=== PATIENT | female | born 1945 | race Caucasian/White ===

== ENCOUNTER 2016-12-02 13:36 | Outpatient (CLI) | END 2016-12-02 13:37 | disposition home or self-care (01) | CPT/HCPCS: 93308; Q9957 ==

== ENCOUNTER 2016-12-26 10:00 | Outpatient (CLI) | payer MEDICARE, OTHER | END 2016-12-26 10:01 | disposition home or self-care (01) | DX: R60.9 Edema, unspecified (principal) ==

== ENCOUNTER 2016-12-31 11:05 | Outpatient (CLI) | payer MEDICARE, OTHER | END 2016-12-31 11:06 | disposition home or self-care (01) | DX: R60.9 Edema, unspecified (principal) ==

== ENCOUNTER 2017-04-20 11:15 | Outpatient (CLI) | payer MEDICARE, OTHER ==
[2017-04-20] MEDS ORDERED: PERFLUTREN LIPID MICROSPHERES 1.65 MG/1.5 ML VIAL IVP ONE (12:16)
== END 2017-04-20 11:16 | disposition home or self-care (01) ==
LOC: DI 11:15
PROVIDERS: ATTEND Internal Medicine Cardiovascular Disease
DX: I42.9 Cardiomyopathy, unspecified (principal)
CPT/HCPCS: 93308; Q9957

== ENCOUNTER 2017-05-26 10:44 | Outpatient (CLI) | payer MEDICARE, OTHER ==
[2017-05-26 18:12] LABS: BASOPHILS % (AUTO) 0.8 %; EOSINOPHILS # (AUTO) 0.1 10^3/uL (0.0-0.7); EOSINOPHILS % (AUTO) 1.4 %; HCT - HEMATOCRIT 43.9 % (37.0-47.0); HGB - HEMOGLOBIN 14.4 g/dL (12.0-16.0); LYMPHOCYTES # (AUTO) 0.8 10^3/uL (1.5-3.5); LYMPHOCYTES % (AUTO) 15.5 %; MEAN CORPUSCULAR HEMOGLOBIN 30.8 pg (27.0-31.0); MEAN CORPUSCULAR HGB CONC 32.9 g/dL (32.0-36.0); MEAN CORPUSCULAR VOLUME 93.6 fL (81.0-99.0); MEAN PLATELET VOLUME 8.9 fL (7.9-10.8); MONOCYTES # (AUTO) 0.4 10^3/uL (0.0-1.0); MONOCYTES % (AUTO) 8.7 %; NEUTROPHILS # (AUTO) 3.8 10^3/uL (1.5-6.6); NEUTROPHILS % (AUTO) 73.6 %; NUCLEATED RED BLOOD CELLS AUTO 0.1 /100WBC; RED BLOOD COUNT 4.69 10^6/uL (4.20-5.40); UNCORRECTED WHITE BLOOD COUNT 5.1 x10^3/uL; WHITE BLOOD COUNT 5.1 x10^3/uL (4.8-10.8)
[2017-05-26 18:34] LABS: ALBUMIN/GLOBULIN RATIO 1.4 (1.0-2.2); BILIRUBIN,TOTAL 0.8 mg/dL (0.2-1.0); BUN - BLOOD UREA NITROGEN 41 mg/dL (6-20); CALCIUM 9.2 mg/dL (8.5-10.3); CARBON DIOXIDE - CO2 27 mmol/L (21-32); CHLORIDE 105 mmol/L (101-111); CHOL/HDL RATIO 3.9 (<4.4); CHOLESTEROL 174 mg/dL; CREATININE 1.2 mg/dL (0.4-1.0); GFR - MDRD 44 (>89); GLUCOSE 97 mg/dL (70-100); HDL CHOLESTEROL 45 mg/dL; LDL/HDL RATIO 2.5 (<4.4); POTASSIUM 4.9 mmol/L (3.5-5.0); SODIUM 139 mmol/L (135-145); TOTAL PROTEIN 6.9 g/dL (6.7-8.2); TRIGLYCERIDES 87 mg/dL; VLDL CHOLESTEROL 17 mg/dL
== END 2017-05-26 10:45 | disposition home or self-care (01) ==
LOC: LAB.F 10:44
PROVIDERS: ATTEND Physician Assistant Medical
DX: E78.5 Hyperlipidemia, unspecified (principal); I48.0 Paroxysmal atrial fibrillation
CPT/HCPCS: 36415; 80053; 80061; 85025

== ENCOUNTER 2017-07-23 10:15 | Outpatient (CLI) | payer MEDICARE, OTHER ==
--- NOTE | 2017-07-24 13:24 | Mammography Report ---
DIGITAL SCREENING MAMMOGRAM: 07/23/2017 CLINICAL INDICATION: A 71-year-old nulliparous patient with personal history of right breast cancer, status post lumpectomy and radiation therapy. COMPARISON: 06/2016, 06/2015, 06/2014, 06/2013, 05/2012, 05/2011, 05/2010. TECHNIQUE: Routine CC and MLO projections were obtained of the breasts. FINDINGS: The breasts again demonstrate scattered fibroglandular densities bilaterally. Coarse, typi mandy benign calcifications are present. Postoperative and posttreatment changes in the right breast are stable. No suspicious masses, clustered microcalcifications, or regions of architectural distorti on are identified. IMPRESSION: BENIGN FINDINGS. RECOMMENDATION: ROUTINE ANNUAL SCREENING UNLESS OTHERWISE CLINICALLY INDICATED. BIRADS CATEGORY 2-BENIGN FINDINGS. STANDARD QUALIFYING STATEMENTS 1. This examination was reviewed with the aid of Computer-Aided Detection (CAD). 2. A negative or benign imaging report should not delay biopsy if clinically suspicious findings are present. Consider surgical consultation if warranted. More than 5% of cancers are not identified by i maging. 3. Dense breasts may obscure an underlying neoplasm. JOB #: [id number] EXT JOB #:[id number]
== END 2017-07-23 10:16 | disposition home or self-care (01) ==
LOC: DI 10:15
PROVIDERS: ATTEND Physician Assistant Medical
DX: Z12.31 Encounter for screening mammogram for malignant neoplasm of breast (principal); Z85.3 Personal history of malignant neoplasm of breast; Z92.3 Personal history of irradiation
CPT/HCPCS: 77067

== ENCOUNTER 2017-07-27 12:16 | Day surgery (SDC) | payer MEDICARE, OTHER ==
[2017-07-27] MEDS ORDERED: LACTATED RINGERS 1,000 ML IV ONE (12:23)
[2017-07-27] MEDS ORDERED: MIDAZOLAM 2 MG/2 ML VIAL IVP ONE (13:29)
[2017-07-27] MEDS ORDERED: fentaNYL 100 MCG/2 ML VIAL IVP ONE (13:29)
--- NOTE | 2017-07-27 13:37 | SURGERY HX AND PHYSICAL(T) ---
Surgical History & Physical - PMH/PSH/Social Hx Does the pt have a hx of MRSA?: No Neurological History: None Eyes, Ears, Nose, Throat: Chronic vision loss Cardiovascular: Congestive heart failure, Atrial fibrillation Respiratory: None Endocrine/Autoimmune: None Gastrointestinal: Colon polyps Musculoskeletal: Osteoarthritis, Chronic back pain General: Colonoscopy Orthopedic: Hip replacement Eyes Ears Nose Throat (EENT): Tonsil/Adenoidectomy - Vital Signs Temperature: 36.6 C Respiratory Rate: 18 O2 Saturation: 96 Weight (kg): 118.5 kg Height: 1.57 m - Patient Review Patient Review: Problems were reviewed with the patient during this visit. Medications were reviewed with the patient during this visit. Allergies were reviewed this patient during this visit. Pertinent Tests Reviewed: All pertitent test for this patient were reviewed. - Assessment & Plan Assessment and Plan: Visit Type: Initial Consult History of Present Illness: Patient is here today for a colonoscopy consult, last one done in 2008....................................................................Gena Mckenna MA June 10, 2017 11:11 AM Vane Torres PA-C initially sent this very pleasant 71 year-old female to my office in consultation fora repeat colonoscopy for follow up on polyps back on June 10, 2017. Because more than 30 days were allowed to elapse between the time of the consultation and the procedure this update history and physical/new history and physical is mandated. In the interim she is undergone a cardiac stress test which she states was normal. She continues to describe her bowel movements as regular and normal. She denies nausea, vomiting, constipation, diarrhea, melena, hematochezia, hematemesis, abdominal pain, unexplained weight loss, or change in the color, character or caliber of her stool. I believe despite the information above that her previous colonoscopy was done in 2009. I do not have any records of the findings at that time. I do have a report from May [address] Keenan Pérez performed a colonoscopy using 6 mg of Versed and 200 mcg of fentanyl that removed a pedunculated polyp at 35 cm. I do not have a pathology report on this polyp. Allergies: PENICILLIN V POTASSIUM (Critical) AMOXICILLIN (Critical) * TAPE (Critical) * MILD HAY FEVER (Critical) * ALOE VERA (Critical) Current Meds: SUPREP BOWEL PREP SOLN (NA SULFATE-K SULFATE-MG SULF) Take one (6oz) bottle by mouth the PM before colonoscopy & one (6oz) bottle by mouth the AM of colonoscopy as directed by surgical clinic ALLERGY RELIEF 50 MCG/ACT NASAL SUSP (FLUTICASONE PROPIONATE) 1 - 2 spray per nostril as needed SPIRONOLACTONE 25 MG TABS (SPIRONOLACTONE) Take one tablet by mouth twice daily ELIQUIS 5 MG ORAL TABS (APIXABAN) Take one tablet by mouth twice daily TRAMADOL HCL 50 MG TABS (TRAMADOL HCL) Take one tablet by mouth three times daily as needed for pain METOPROLOL SUCCINATE ER 100 MG [id number] (METOPROLOL SUCCINATE) Take two tablet by mouth daily LISINOPRIL 20 MG TABS (LISINOPRIL) Take one tablet by mouth daily POTASSIUM CHLORIDE CR 10 MEQ TBCR (POTASSIUM CHLORIDE) Take one tablet by mouth once daily LASIX 20 MG TABS (FUROSEMIDE) Take two tablet by mouth every morning and one in the afternoon * ZIPPERED 20-30MMHG PRESSURE STOCKINGS use as directed Past Medical History: Venous ablation 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 Tamoxifen x 5 years. Irregular heartbeat CHF A Fib Dyspnea Claustrophobia Past Surgical History: 1976=carpal tunnel release 2004=L. hip replacement Remote TA Right DCIS lumpectomy with re-excision for better margins - 2006 varicose vein ablation: 2009 Tonsilectomy Cholecystectomy Family History Summary: Mother (biol.) - Has Family History of Diabetes - Entered On: 06/10/2017 Mother (biol.) - Has a mother - Entered On: 06/10/2017 General Comments - FH: Mother: DM, [place] age 72 Father: Alcoholic cirrhosis, age 67 MGM: DM Sister: DM MGF: Prostate cancer? Risk Factors: Smoked Tobacco Use: Never smoker Smokeless Tobacco Use: Never Passive smoke exposure: no Drug use: no HIV high-risk behavior: no Caffeine use: 1 drinks per day Alcohol use: yes Type: wine Drinks per day: <1 Exercise: no Seatbelt use: 100 % Sun Exposure: occasionally Previous Tobacco Use: Signed On - 04/09/2017 Smoked Tobacco Use: Never smoker Smokeless Tobacco Use: Never Passive smoke exposure: no Drug use: no HIV high-risk behavior: no Caffeine use: 1 drinks per day Review of Systems CONSTITUTIONAL: No weight loss, fever, chills, weakness or fatigue. HEENT: Eyes: No visual loss, blurred vision, double vision or yellow sclerae. Ears, Nose, Throat: No hearing loss, sneezing, congestion, runny nose or sore throat. SKIN: No rash or itching. CARDIOVASCULAR: No chest pain, chest pressure or chest discomfort. No palpitations or edema. RESPIRATORY: No shortness of breath, cough or sputum. GASTROINTESTINAL: No anorexia, nausea, vomiting or diarrhea. No abdominal pain or blood. GENITOURINARY: No dysuria. Not . NEUROLOGICAL: No headache, dizziness, syncope, paralysis, ataxia, numbness or tingling in the extremities. No change in bowel or bladder control. MUSCULOSKELETAL: No muscle, back pain, joint pain or stiffness. HEMATOLOGIC: No anemia, bleeding or bruising. LYMPHATICS: No enlarged nodes. No history of splenectomy. PSYCHIATRIC: No history of depression or anxiety. ENDOCRINOLOGIC: No reports of sweating, cold or heat intolerance. No polyuria or polydipsia. ALLERGIES: No history of asthma, hives, eczema or rhinitis. 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) General: 71 year old obese female, appears slightly younger than stated age, well developed, well nourished HEENT: Normocephalic, atraumatic, extraocular movement intact, mucous membranes pink and moist, sclera anicteric and not injected Neck: Supple without pain on palpation, mass or bruit Cardiac: Regular rate and rhythm without rub, gallop, or murmur Chest: Clear to auscultation bilaterally Abdomen: Soft, nontender, normoactive bowel sounds, no hepatomegaly, no splenomegaly Genitourinary: Deferred Rectal: Deferred until colonoscopy Extremities: No gross neurovascular problem, no clubbing, cyanosis or edema Gait: No gross motor deficit Psychiatric: Alert and oriented to person place and time, asks and answers questions appropriately, mood and affect appropriate Impression & Recommendations: Screening colonoscopy with possible biopsies and/or polypectomies. Indications , procedure, alternatives (such as barium enema, Cologuard and even no procedure at all) and risks including but not limited to perforation requiring operative repair, bleeding with its risks, and were fully explained to him. In the office, I lynda diagrams explaining the colonic anatomy and the proposed procedure and handed it to him. In the office, conscious sedation was discussed at length with him as were its risks including but not limited to loss of airway, aspiration, respiratory depression, and not enough relief of pain and anxiety and he indicated that he wished to have conscious sedation for his procedure. In the office, I explained that MAC anesthesia is associated with a higher incidence of colon perforation. Review of his history does not reveal any significant systemic disease that would contraindicate use of conscious sedation or MAC anesthesia. All questions were fully answered. Verbal and written consent was obtained. The patient in preparation for his colonoscopy has been n.p.o. and his colon has been mechanically prepped. 20 minutes of [id number] time spent with the patient the majority of which was spent in discussion, and 15 minutes were spent in generating this document
[2017-07-27 14:45] VITALS: BP 115/74
== END 2017-07-27 12:17 | disposition home or self-care (01) ==
LOC: SDS 12:16
PROVIDERS: ATTEND Surgery
PROC: 0DBH8ZX Excision of Cecum, Via Natural or Artificial Opening Endoscopic, Diagnostic (ICD-10-PCS; principal; 2017-07-27 13:30)
DX: Z12.11 Encounter for screening for malignant neoplasm of colon (principal); D12.0 Benign neoplasm of cecum; K57.30 Diverticulosis of large intestine without perforation or abscess without bleeding; I48.91 Unspecified atrial fibrillation; I50.9 Heart failure, unspecified; Z79.01 Long term (current) use of anticoagulants; Z85.3 Personal history of malignant neoplasm of breast
CPT/HCPCS: 45380; J7120

== ENCOUNTER 2018-01-06 11:17 | Outpatient (CLI) | payer MEDICARE, OTHER ==
[2018-01-06 17:43] LABS: BASOPHILS % (AUTO) 0.5 %; EOSINOPHILS # (AUTO) 0.1 10^3/uL (0.0-0.7); EOSINOPHILS % (AUTO) 1.2 %; HGB - HEMOGLOBIN 14.7 g/dL (12.0-16.0); LYMPHOCYTES # (AUTO) 0.8 10^3/uL (1.5-3.5); MEAN CORPUSCULAR HEMOGLOBIN 29.8 pg (27.0-31.0); MEAN CORPUSCULAR HGB CONC 33.3 g/dL (32.0-36.0); MEAN CORPUSCULAR VOLUME 89.6 fL (81.0-99.0); MONOCYTES # (AUTO) 0.5 10^3/uL (0.0-1.0); MONOCYTES % (AUTO) 9.7 %; NEUTROPHILS # (AUTO) 3.8 10^3/uL (1.5-6.6); NEUTROPHILS % (AUTO) 72.6 %; PLT - PLATELET COUNT 220 10^3/uL (130-450); RED BLOOD COUNT 4.95 10^6/uL (4.20-5.40); RED CELL DISTRIBUTION WIDTH 13.7 % (12.0-15.0); WHITE BLOOD COUNT 5.3 x10^3/uL (4.8-10.8)
[2018-01-06 18:16] LABS: ALBUMIN/GLOBULIN RATIO 1.3 (1.0-2.2); ALKALINE PHOSPHATASE 69 IU/L (42-121); ALT ALANINE AMINOTRANSFERASE 12 IU/L (10-60); AST ASPARTATE AMINOTRANSFERASE 17 IU/L (10-42); BILIRUBIN,TOTAL 0.8 mg/dL (0.2-1.0); BUN - BLOOD UREA NITROGEN 23 mg/dL (6-20); CALCIUM 9.1 mg/dL (8.5-10.3); CARBON DIOXIDE - CO2 27 mmol/L (21-32); CHLORIDE 103 mmol/L (101-111); CHOL/HDL RATIO 3.7 (<4.4); CHOLESTEROL 177 mg/dL; CREATININE 1.2 mg/dL (0.4-1.0); GFR - MDRD 44 (>89); GLUCOSE 101 mg/dL (70-100); HDL CHOLESTEROL 48 mg/dL; LDL CHOLESTEROL,CALCULATED 110 mg/dL; LDL/HDL RATIO 2.3 (<4.4); SODIUM 138 mmol/L (135-145); VLDL CHOLESTEROL 19 mg/dL
== END 2018-01-06 11:18 | disposition home or self-care (01) ==
LOC: LAB.F 11:17
PROVIDERS: ATTEND Physician Assistant Medical
DX: I48.0 Paroxysmal atrial fibrillation (principal); E78.5 Hyperlipidemia, unspecified
CPT/HCPCS: 36415; 80053; 80061; 83721; 85025

== ENCOUNTER 2018-04-22 11:17 | Outpatient (CLI) | payer MEDICARE, OTHER | END 2018-04-22 11:18 | disposition home or self-care (01) | LOC: DI 11:17 | PROVIDERS: ATTEND Internal Medicine Cardiovascular Disease | DX: I50.9 Heart failure, unspecified (principal); I71.2 Thoracic aortic aneurysm, without rupture | CPT/HCPCS: 93306 ==

== ENCOUNTER 2018-07-06 11:21 | Outpatient (CLI) | payer MEDICARE, OTHER ==
[2018-07-06] MEDS ORDERED: PERFLUTREN LIPID MICROSPHERES 1.65 MG/1.5 ML VIAL IVP ONE (13:08)
== END 2018-07-06 11:22 | disposition home or self-care (01) ==
LOC: DI 11:21
PROVIDERS: ATTEND Internal Medicine Cardiovascular Disease
DX: I42.9 Cardiomyopathy, unspecified (principal); I51.7 Cardiomegaly
CPT/HCPCS: 93306; Q9957

== ENCOUNTER 2018-08-16 13:38 | Outpatient (CLI) | payer MEDICARE, OTHER ==
--- NOTE | 2018-08-18 10:13 | Mammography Report ---
Reason: 72 YR OLD NULLIPEROUS PATIENT W/ PERSON HX R KESHIA Procedure Date: 08/16/2018 Accession Number: [id number] / [id number] Procedure: INGRID - Screening Mammo Dig Bilat CPT Code: FULL RESULT: EXAM: Screening Mammo Dig Bilat DATE: 08/16/2018 2:29 PM CLINICAL HISTORY: 73-year-old nulliparous female with personal history of right breast cancer status post lumpectomy and radiation. TECHNIQUE: Bilateral CC and MLO views were obtained. COMPARISON: 07/23/2017, 07/21/2016, 07/06/2015, 07/03/2014. FINDINGS: The breasts demonstrate diffuse fatty replacement bilaterally. Postsurgical and posttreatment changes are seen in the right breast and are essentially unchanged. Typically benign coarse calcifications are seen bilaterally. No suspicious masses, clustered microcalcifications, or regions of architectural distortion are identified. IMPRESSION: Benign findings RECOMMENDATION: Routine annual screening unless otherwise clinically indicated. BIRADS CATEGORY 2: Benign findings STANDARD QUALIFYING STATEMENTS: 1. This examination was reviewed without the aid of Computer-Aided Detection (CAD). 2. A negative or benign imaging report should not delay biopsy if clinically suspicious findings are present. Consider surgical consultation if warrented. More than 5% of cancers are not identified by imaging. 3. Dense breasts may obscure an underlying neoplasm.
== END 2018-08-16 13:39 | disposition home or self-care (01) ==
LOC: DI 13:38
PROVIDERS: ATTEND Internal Medicine Hematology & Oncology
DX: Z12.31 Encounter for screening mammogram for malignant neoplasm of breast (principal); Z85.3 Personal history of malignant neoplasm of breast
CPT/HCPCS: 77067

== ENCOUNTER 2018-08-16 14:49 | Outpatient (CLI) | payer MEDICARE, OTHER ==
[2018-08-16 15:16] LABS: CALCIUM 9.1 mg/dL (8.5-10.3); CREATININE 1.1 mg/dL (0.4-1.0)
== END 2018-08-16 14:50 | disposition home or self-care (01) ==
LOC: LAB 14:49
PROVIDERS: ATTEND Internal Medicine Cardiovascular Disease
DX: I42.9 Cardiomyopathy, unspecified (principal)
CPT/HCPCS: 36415; 80048

== ENCOUNTER 2019-02-09 11:07 | Outpatient (CLI) | payer MEDICARE, OTHER ==
[2019-02-09 18:07] LABS: BASOPHILS % (AUTO) 0.8 %; EOSINOPHILS # (AUTO) 0.1 10^3/uL (0.0-0.7); EOSINOPHILS % (AUTO) 1.2 %; HGB - HEMOGLOBIN 14.9 g/dL (12.0-16.0); LYMPHOCYTES # (AUTO) 0.9 10^3/uL (1.5-3.5); LYMPHOCYTES % (AUTO) 15.2 %; MEAN CORPUSCULAR HEMOGLOBIN 29.7 pg (27.0-31.0); MEAN CORPUSCULAR HGB CONC 32.2 g/dL (32.0-36.0); MEAN CORPUSCULAR VOLUME 92.3 fL (81.0-99.0); MONOCYTES # (AUTO) 0.6 10^3/uL (0.0-1.0); MONOCYTES % (AUTO) 10.1 %; NEUTROPHILS # (AUTO) 4.2 10^3/uL (1.5-6.6); NEUTROPHILS % (AUTO) 72.7 %; PLT - PLATELET COUNT 236 10^3/uL (130-450); RED CELL DISTRIBUTION WIDTH 13.7 % (12.0-15.0); WHITE BLOOD COUNT 5.8 x10^3/uL (4.8-10.8)
[2019-02-09 18:27] LABS: ALBUMIN/GLOBULIN RATIO 1.4 (1.0-2.2); ALKALINE PHOSPHATASE 69 IU/L (42-121); ALT ALANINE AMINOTRANSFERASE 15 IU/L (10-60); AST ASPARTATE AMINOTRANSFERASE 18 IU/L (10-42); BUN - BLOOD UREA NITROGEN 31 mg/dL (6-20); CARBON DIOXIDE - CO2 27 mmol/L (21-32); CHLORIDE 103 mmol/L (101-111); CHOL/HDL RATIO 3.8 (<4.4); CHOLESTEROL 202 mg/dL; CREATININE 1.3 mg/dL (0.4-1.0); GFR - MDRD 40 (>89); GLUCOSE 98 mg/dL (70-100); HDL CHOLESTEROL 53 mg/dL; LDL CHOLESTEROL,CALCULATED 125 mg/dL; LDL/HDL RATIO 2.4 (<4.4); SODIUM 140 mmol/L (135-145); TOTAL PROTEIN 6.9 g/dL (6.7-8.2); VLDL CHOLESTEROL 24 mg/dL
== END 2019-02-09 11:08 | disposition home or self-care (01) ==
LOC: LAB.F 11:07
PROVIDERS: ATTEND Physician Assistant Medical
DX: E78.5 Hyperlipidemia, unspecified (principal); I48.0 Paroxysmal atrial fibrillation; M17.9 Osteoarthritis of knee, unspecified
CPT/HCPCS: 36415; 80053; 80061; 83721; 85025

== ENCOUNTER 2019-03-09 12:52 | Outpatient (CLI) | payer MEDICARE, OTHER ==
[2019-03-13] MEDS ORDERED: PERFLUTREN LIPID MICROSPHERES 1.65 MG/1.5 ML VIAL IVP ONE (08:20)
== END 2019-03-09 12:53 | disposition home or self-care (01) ==
LOC: DI 12:52
PROVIDERS: ATTEND Internal Medicine Cardiovascular Disease
DX: I50.9 Heart failure, unspecified (principal)
CPT/HCPCS: 93306

== ENCOUNTER 2019-08-17 15:27 | Outpatient (CLI) | payer MEDICARE, OTHER ==
--- NOTE | 2019-08-18 13:13 | Mammography Report ---
Reason: SCREENING Procedure Date: 08/17/2019 Accession Number: [id number] / [id number] Procedure: INGRID - Screening Mammo Dig Bilat CPT Code: FULL RESULT: EXAM: Screening Mammo Dig Bilat DATE: 08/17/2019 4:30 PM CLINICAL HISTORY: Nulliparous patient with history of right breast cancer and radiation therapy TECHNIQUE: (B) - Bilateral CC and MLO views were obtained. COMPARISON: 08/16/2018, 07/23/2017, 07/21/2016 and 07/06/2015 PARENCHYMAL PATTERN: (F) - The breasts demonstrate diffuse fatty replacement bilaterally. FINDINGS: Stable postsurgical change right breast. Examination is technically limited by patient's ability to cooperate. IMPRESSION: Incomplete examination. BI-RADS category 0. Technical repeat needed of the bilateral MLO views. RECOMMENDATION: (ADDMAM) - Recommend additional mammographic views. Repeat bilateral MLO views. BI-RADS CATEGORY: (0) - Incomplete Examination - need additional evaluation. STANDARD QUALIFYING STATEMENTS: 1. This examination was not reviewed with the aid of Computer-Aided Detection (CAD). 2. A negative or benign imaging report should not preclude biopsy if clinically suspicious findings are present. 3. Dense breasts may obscure an underlying neoplasm. 4. This examination was reviewed without the aid of 3D breast imaging (tomosynthesis).
== END 2019-08-17 15:28 | disposition home or self-care (01) ==
LOC: DI 15:27
PROVIDERS: ATTEND Internal Medicine Hematology & Oncology
DX: Z12.31 Encounter for screening mammogram for malignant neoplasm of breast (principal); Z08 Encounter for follow-up examination after completed treatment for malignant neoplasm; Z85.3 Personal history of malignant neoplasm of breast
CPT/HCPCS: 77067

== ENCOUNTER 2019-08-31 13:34 | Outpatient (CLI) | payer MEDICARE, OTHER ==
[2019-08-31 14:02] LABS: ALBUMIN 3.9 g/dL (3.2-5.5); ALBUMIN/GLOBULIN RATIO 1.5 (1.0-2.2); ALKALINE PHOSPHATASE 63 IU/L (42-121); ALT ALANINE AMINOTRANSFERASE 14 IU/L (10-60); AST ASPARTATE AMINOTRANSFERASE 18 IU/L (10-42); BILIRUBIN,TOTAL 1.1 mg/dL (0.2-1.0); BUN - BLOOD UREA NITROGEN 24 mg/dL (6-20); CALCIUM 8.9 mg/dL (8.5-10.3); CARBON DIOXIDE - CO2 26 mmol/L (21-32); CHLORIDE 104 mmol/L (101-111); CHOL/HDL RATIO 4.2 (<4.4); CHOLESTEROL 187 mg/dL; CREATININE 1.1 mg/dL (0.4-1.0); GFR - MDRD 49 (>89); GLUCOSE 106 mg/dL (70-100); HDL CHOLESTEROL 45 mg/dL; LDL CHOLESTEROL,CALCULATED 123 mg/dL; LDL/HDL RATIO 2.7 (<4.4); SODIUM 140 mmol/L (135-145); TOTAL PROTEIN 6.5 g/dL (6.7-8.2); VLDL CHOLESTEROL 19 mg/dL
== END 2019-08-31 13:35 | disposition home or self-care (01) ==
LOC: LAB 13:34
PROVIDERS: ATTEND Physician Assistant Medical
DX: E78.5 Hyperlipidemia, unspecified (principal)
CPT/HCPCS: 36415; 80053; 80061; 83721

== ENCOUNTER 2019-09-14 13:23 | Outpatient (CLI) | payer MEDICARE, OTHER ==
--- NOTE | 2019-09-21 06:26 | Mammography Report ---
Reason: TECH REPEAT - NO CHARGE - ROUTINE MAMMO Procedure Date: 09/14/2019 Accession Number: [id number] / [id number] Procedure: INGRID - Screening Mammo Dig Bilat CPT Code: FULL RESULT: FINDINGS: IMPRESSION: For results, please reference the addended 08/17/2019 screening mammogram report.
== END 2019-09-14 13:24 | disposition home or self-care (01) ==
LOC: DI 13:23
PROVIDERS: ATTEND Internal Medicine Hematology & Oncology
DX: Z12.31 Encounter for screening mammogram for malignant neoplasm of breast (principal); Z85.3 Personal history of malignant neoplasm of breast
CPT/HCPCS: 77067

== ENCOUNTER 2020-01-12 08:42 | Outpatient (CLI) | payer MEDICARE, OTHER | END 2020-01-12 08:43 | disposition EMS.NT | LOC: EMS 08:42 | PROVIDERS: ATTEND Surgery | DX: M25.561 Pain in right knee (principal); W01.0XXA Fall on same level from slipping, tripping and stumbling without subsequent striking against object, initial encounter; Y92.009 Unspecified place in unspecified non-institutional (private) residence as the place of occurrence of the external cause ==

== ENCOUNTER 2020-02-13 17:00 | Outpatient (CLI) | payer MEDICARE, OTHER | END 2020-02-13 23:59 | disposition home or self-care (01) | LOC: LAB.R 17:00 | PROVIDERS: ATTEND Physician Assistant Medical | DX: L98.499 Non-pressure chronic ulcer of skin of other sites with unspecified severity (principal) | CPT/HCPCS: 87070; 87077; 87181; 87205 ==

== ENCOUNTER 2020-04-03 13:06 | Outpatient (CLI) | payer MEDICARE, OTHER ==
[2020-04-03 13:50] LABS: ALBUMIN 3.9 g/dL (3.2-5.5); ALBUMIN/GLOBULIN RATIO 1.3 (1.0-2.2); ALKALINE PHOSPHATASE 70 IU/L (42-121); ALT ALANINE AMINOTRANSFERASE 13 IU/L (10-60); AST ASPARTATE AMINOTRANSFERASE 17 IU/L (10-42); BUN - BLOOD UREA NITROGEN 28 mg/dL (6-20); CALCIUM 8.8 mg/dL (8.5-10.3); CARBON DIOXIDE - CO2 26 mmol/L (21-32); CHLORIDE 105 mmol/L (101-111); CHOL/HDL RATIO 4.4 (<4.4); CHOLESTEROL 184 mg/dL; CREATININE 1.1 mg/dL (0.4-1.0); GLUCOSE 111 mg/dL (70-100); HDL CHOLESTEROL 42 mg/dL; LDL CHOLESTEROL,CALCULATED 119 mg/dL; LDL/HDL RATIO 2.8 (<4.4); SODIUM 139 mmol/L (135-145); TOTAL PROTEIN 6.8 g/dL (6.7-8.2); VLDL CHOLESTEROL 23 mg/dL
== END 2020-04-03 13:07 | disposition home or self-care (01) ==
LOC: LAB 13:06
PROVIDERS: ATTEND Physician Assistant Medical
DX: E78.5 Hyperlipidemia, unspecified (principal)
CPT/HCPCS: 36415; 80053; 80061; 83721

== ENCOUNTER 2020-04-10 07:00 | Outpatient (CLI) | payer MEDICARE, OTHER | END 2020-04-10 23:59 | disposition home or self-care (01) | LOC: LAB.R 07:00 | PROVIDERS: ATTEND Physician Assistant Medical | DX: L97.919 Non-pressure chronic ulcer of unspecified part of right lower leg with unspecified severity (principal) | CPT/HCPCS: 87070; 87077; 87181; 87205 ==

== ENCOUNTER 2020-11-01 15:06 | Outpatient (CLI) | payer MEDICARE, OTHER ==
[2020-11-01 15:43] LABS: ALBUMIN 4.1 g/dL (3.2-5.5); ALBUMIN/GLOBULIN RATIO 1.5 (1.0-2.2); CALCIUM 9.2 mg/dL (8.5-10.3); TOTAL PROTEIN 6.9 g/dL (6.7-8.2)
== END 2020-11-01 15:07 | disposition home or self-care (01) ==
LOC: LAB 15:06
PROVIDERS: ATTEND Physician Assistant Medical
DX: E78.5 Hyperlipidemia, unspecified (principal)
CPT/HCPCS: 36415; 80053

== ENCOUNTER 2020-12-20 14:04 | Outpatient (CLI) | payer MEDICARE, OTHER ==
--- NOTE | 2020-12-21 09:55 | Mammography Report ---
BILATERAL DIGITAL SCREENING MAMMOGRAM: 12/20/2020 CLINICAL: Routine screening. Personal history of right breast cancer. Comparison is made to exams dated: 09/14/2019 mammogram, 08/17/2019 mammogram, 08/16/2018 mammogram, mammogram, 07/21/2016 mammogram, and 07/06/2015 mammogram - [facility]. Ther e are scattered fibroglandular elements in both breasts. There is an oval equal density asymmetry with an indistinct margin in the left breast anterior depth lateral region seen on the craniocaudal view only. No other significant masses, calcifications, or other findings are seen in either breast. IMPRESSION: INCOMPLETE: NEEDS ADDITIONAL IMAGING EVALUATION The oval equal density asymmetry in the left breast is indeterminate. Mediolateral and spot compress ion views as well as additional views with possible ultrasound are recommended. This exam was interpreted at Station ID: [id number]. NOTE: For mammograms, a report in lay terms will be sent to the patient. Approximately 15% of breast malignancies will not be visualized mammographically. In the management of a palpable breast mass, a negative mammogram must not discourage biopsy of a clinically suspicious lesion. Electronically Signed By: Luis A Hernandez M.D. ddp/penrad:12/20/2020 15:02:23 ACR BI-RADS Category 0: Incomplete 3340F PARENCHYMAL PATTERN: (A) - The breast(s) demonstrate(s) scattered fibroglandular densities. BI-RADS CATEGORY: (0) - 0 Mammo and US [id number] Immediate follow-up LATERALITY: (B)
== END 2020-12-20 14:05 | disposition home or self-care (01) ==
LOC: DI.N 14:04
DX: Z12.31 Encounter for screening mammogram for malignant neoplasm of breast (principal); Z08 Encounter for follow-up examination after completed treatment for malignant neoplasm; Z85.3 Personal history of malignant neoplasm of breast; N64.89 Other specified disorders of breast

== ENCOUNTER 2021-02-14 10:13 | Outpatient (CLI) | payer MEDICARE, OTHER ==
--- NOTE | 2021-02-15 08:53 | Mammography Report ---
UNILATERAL LEFT DIGITAL DIAGNOSTIC MAMMOGRAM 3D/2D: 02/14/2021 CLINICAL: Patient returns today to evaluate a focal asymmetry in the left breast. Comparison is made to exams dated: 12/20/2020 mammogram, 09/14/2019 mammogram, 08/17/2019 mammogram, a nd 08/16/2018 mammogram - [facility]. There are scattered fibroglandular elements i n left breast. The oval asymmetry with indistinct margins in the left breast anterior depth lateral region seen on t he craniocaudal view only is not seen on additional views. No other significant masses or calcifications are seen in the breast. IMPRESSION: BENIGN There is no mammographic evidence of malignancy. A 1 year screening mammogram is recommended. This exam was interpreted at Station ID: [id number]. NOTE: For mammograms, a report in lay terms will be sent to the patient. Approximately 15% of breast malignancies will not be visualized mammographically. In the management of a palpable breast mass, a negative mammogram must not discourage biopsy of a clinically suspicious lesion. Electronically Signed By: Luis A Hernandez M.D. ddp/:02/14/2021 11:29:34 ACR BI-RADS Category 2: Benign Finding(s) 3342F PARENCHYMAL PATTERN: (A) - The breast(s) demonstrate(s) scattered fibroglandular densities. BI-RADS CATEGORY: (2) - 2 RECOMMENDATION: (ANNUAL) - Recommend routine annual screening mammography. [id number] 1 year screening LATERALITY: (B)
== END 2021-02-14 10:14 | disposition home or self-care (01) ==
LOC: DI 10:13
PROVIDERS: ATTEND Physician Assistant Medical
DX: R92.8 Other abnormal and inconclusive findings on diagnostic imaging of breast (principal)

== ENCOUNTER 2021-05-14 14:30 | Outpatient (CLI) | payer MEDICARE, OTHER ==
[2021-05-14 14:54] LABS: BASOPHILS % (AUTO) 0.6 %; EOSINOPHILS # (AUTO) 0.1 10^3/uL (0.0-0.7); HCT - HEMATOCRIT 48.4 % (37.0-47.0); HGB - HEMOGLOBIN 15.1 g/dL (12.0-16.0); LYMPHOCYTES # (AUTO) 0.8 10^3/uL (1.5-3.5); LYMPHOCYTES % (AUTO) 16.4 %; MEAN CORPUSCULAR HEMOGLOBIN 29.2 pg (27.0-31.0); MEAN CORPUSCULAR HGB CONC 31.2 g/dL (32.0-36.0); MEAN CORPUSCULAR VOLUME 93.4 fL (81.0-99.0); MEAN PLATELET VOLUME 9.9 fL (7.9-10.8); MONOCYTES # (AUTO) 0.6 10^3/uL (0.0-1.0); MONOCYTES % (AUTO) 11.3 %; NEUTROPHILS # (AUTO) 3.5 10^3/uL (1.5-6.6); NEUTROPHILS % (AUTO) 70.3 %; PLT - PLATELET COUNT 180 10^3/uL (130-450); RED BLOOD COUNT 5.18 10^6/uL (4.20-5.40); RED CELL DISTRIBUTION WIDTH 13.6 % (12.0-15.0); WHITE BLOOD COUNT 4.9 x10^3/uL (4.8-10.8)
[2021-05-14 15:28] LABS: ALBUMIN 4.1 g/dL (3.2-5.5); ALBUMIN/GLOBULIN RATIO 1.4 (1.0-2.2); ALKALINE PHOSPHATASE 75 IU/L (42-121); ALT ALANINE AMINOTRANSFERASE 13 IU/L (10-60); AST ASPARTATE AMINOTRANSFERASE 17 IU/L (10-42); BILIRUBIN,TOTAL 1.2 mg/dL (0.2-1.0); BUN - BLOOD UREA NITROGEN 24 mg/dL (6-20); CALCIUM 9.2 mg/dL (8.5-10.3); CARBON DIOXIDE - CO2 24 mmol/L (21-32); CHLORIDE 103 mmol/L (101-111); CHOL/HDL RATIO 3.6 (<4.4); CHOLESTEROL 182 mg/dL; CREATININE 1.1 mg/dL (0.4-1.0); GFR - MDRD 49 (>89); GLUCOSE 99 mg/dL (70-100); HDL CHOLESTEROL 51 mg/dL; LDL CHOLESTEROL,CALCULATED 115 mg/dL; LDL/HDL RATIO 2.3 (<4.4); POTASSIUM 4.5 mmol/L (3.5-5.0); SODIUM 140 mmol/L (135-145); TOTAL PROTEIN 7.1 g/dL (6.7-8.2); TRIGLYCERIDES 81 mg/dL; VLDL CHOLESTEROL 16 mg/dL
[2021-05-14 15:30] LABS: THYROID STIMULATING HORMONE 3.27 uIU/mL (0.34-5.60)
== END 2021-05-14 14:31 | disposition home or self-care (01) ==
LOC: LAB 14:30
PROVIDERS: ATTEND Physician Assistant Medical
DX: R73.9 Hyperglycemia, unspecified (principal); E78.5 Hyperlipidemia, unspecified; I48.0 Paroxysmal atrial fibrillation; J30.9 Allergic rhinitis, unspecified
CPT/HCPCS: 36415; 80053; 80061; 83721; 84443; 85025

== ENCOUNTER 2021-07-12 10:39 | Outpatient (CLI) | payer MEDICARE, OTHER ==
[2021-07-12] MEDS ORDERED: PERFLUTREN LIPID MICROSPHERES 1.65 MG/1.5 ML VIAL IVP ONE (12:08)
== END 2021-07-12 10:40 | disposition home or self-care (01) ==
LOC: DI 10:39
PROVIDERS: ATTEND Internal Medicine Cardiovascular Disease
DX: I77.819 Aortic ectasia, unspecified site (principal); I48.91 Unspecified atrial fibrillation; I51.7 Cardiomegaly
CPT/HCPCS: 93306

== ENCOUNTER 2021-07-12 13:29 | Outpatient (CLI) | payer MEDICARE, OTHER ==
--- NOTE | 2021-07-12 14:53 | Ultrasound Report ---
PROCEDURE: Ext Limited Non Vascular INDICATIONS: SOFT TISSUE MASS LEFT FOREARM TECHNIQUE: Real-time scanning was performed of the left forearm, with image documentation. COMPARISON: None. FINDINGS: In the area of palpable abnormality involving the left forearm, 5.8 x 1.0 x 3.4 cm complex fluid collection is seen. IMPRESSION: Complex fluid collection possibly hematoma (bland or infected) in the area of palpable a bnormality. Recommend clinical management to document resolution after treatment. Reviewed by: Manjeet Ramos MD on 07/12/2021 2:51 PM PDT Approved by: Manjeet Ramos MD on 07/12/2021 2:51 PM PDT Station ID: [id number]
== END 2021-07-12 13:30 | disposition home or self-care (01) ==
LOC: DI 13:29
PROVIDERS: ATTEND Physician Assistant Medical
DX: D49.2 Neoplasm of unspecified behavior of bone, soft tissue, and skin (principal); R93.6 Abnormal findings on diagnostic imaging of limbs; I77.819 Aortic ectasia, unspecified site; I48.91 Unspecified atrial fibrillation; I51.7 Cardiomegaly
CPT/HCPCS: 76882; 93306; Q9957

== ENCOUNTER 2021-12-16 13:22 | Outpatient (CLI) | payer MEDICARE, OTHER ==
[2021-12-16 14:03] LABS: ALBUMIN 4.1 g/dL (3.2-5.5); ALBUMIN/GLOBULIN RATIO 1.4 (1.0-2.2); ALKALINE PHOSPHATASE 74 IU/L (42-121); ALT ALANINE AMINOTRANSFERASE 15 IU/L (10-60); AST ASPARTATE AMINOTRANSFERASE 16 IU/L (10-42); BILIRUBIN,TOTAL 1.7 mg/dL (0.2-1.0); BUN - BLOOD UREA NITROGEN 24 mg/dL (6-20); CARBON DIOXIDE - CO2 25 mmol/L (21-32); CHLORIDE 104 mmol/L (101-111); CHOL/HDL RATIO 3.8 (<4.4); CHOLESTEROL 187 mg/dL; CREATININE 1.1 mg/dL (0.4-1.0); GFR - MDRD 48 (>89); GLUCOSE 116 mg/dL (70-100); HDL CHOLESTEROL 49 mg/dL; LDL CHOLESTEROL,CALCULATED 122 mg/dL; LDL/HDL RATIO 2.5 (<4.4); POTASSIUM 4.7 mmol/L (3.5-5.0); SODIUM 141 mmol/L (135-145); TOTAL PROTEIN 7.1 g/dL (6.7-8.2); TRIGLYCERIDES 79 mg/dL; VLDL CHOLESTEROL 16 mg/dL
== END 2021-12-16 13:23 | disposition home or self-care (01) ==
LOC: LAB 13:22
PROVIDERS: ATTEND Physician Assistant Medical
DX: E78.5 Hyperlipidemia, unspecified (principal)
CPT/HCPCS: 36415; 80053; 80061; 83721

== ENCOUNTER 2022-01-28 08:00 | Outpatient (CLI) | payer MEDICARE, OTHER | END 2022-01-28 23:59 | disposition home or self-care (01) | LOC: LAB 08:00 | PROVIDERS: ATTEND Physician Assistant Medical | DX: I87.319 Chronic venous hypertension (idiopathic) with ulcer of unspecified lower extremity (principal); L97.909 Non-pressure chronic ulcer of unspecified part of unspecified lower leg with unspecified severity | CPT/HCPCS: 87070; 87077; 87181; 87205 ==

== ENCOUNTER 2022-05-20 15:37 | Outpatient (CLI) | payer MEDICARE, OTHER ==
--- NOTE | 2022-05-22 07:48 | Mammography Report ---
BILATERAL DIGITAL SCREENING MAMMOGRAM: 05/20/2022 CLINICAL: Routine screening. Personal history of right breast cancer. Comparison is made to exams dated: 02/14/2021 mammogram, 12/20/2020 mammogram, 09/14/2019 mammogram, mammogram, and [facility] The tissue of both breas ts is predominantly fatty. There are benign calcifications in both breasts. There also are benign post operative findings in th e right breast. No significant masses, calcifications, or other findings are seen in either breast. There has been no significant interval change. IMPRESSION: BENIGN There is no mammographic evidence of malignancy. A 1 year screening mammogram is recommended. This exam was interpreted at Station ID: [id number]. NOTE: For mammograms, a report in lay terms will be sent to the patient. Approximately 15% of breast malignancies will not be visualized mammographically. In the management of a palpable breast mass, a negative mammogram must not discourage biopsy of a clinically suspicious lesion. Electronically Signed By: Giacomo verde/ugo:05/21/2022 08:28:42 ACR BI-RADS Category 2: Benign Finding(s) 3342F PARENCHYMAL PATTERN: (F) - The breast(s) demonstrate(s) diffuse fatty replacement. BI-RADS CATEGORY: (2) - 2 RECOMMENDATION: (ANNUAL) - Recommend routine annual screening mammography. [id number] 1 year screening LATERALITY: (B)
== END 2022-05-20 15:38 | disposition home or self-care (01) ==
LOC: DI.N 15:37
DX: Z12.31 Encounter for screening mammogram for malignant neoplasm of breast (principal); Z85.3 Personal history of malignant neoplasm of breast

== ENCOUNTER 2022-12-09 12:47 | Outpatient (CLI) | payer MEDICARE, OTHER ==
[2022-12-09 13:19] LABS: ALBUMIN/GLOBULIN RATIO 1.4 (1.0-2.2); ALKALINE PHOSPHATASE 66 IU/L (42-121); ALT ALANINE AMINOTRANSFERASE 18 IU/L (10-60); AST ASPARTATE AMINOTRANSFERASE 17 IU/L (10-42); BILIRUBIN,TOTAL 1.3 mg/dL (0.2-1.0); BUN - BLOOD UREA NITROGEN 23 mg/dL (6-20); CALCIUM 8.6 mg/dL (8.5-10.3); CARBON DIOXIDE - CO2 26 mmol/L (21-32); CHLORIDE 104 mmol/L (101-111); CHOL/HDL RATIO 3.8 (<4.4); CHOLESTEROL 179 mg/dL; CREATININE 1.1 mg/dL (0.4-1.0); GFR - MDRD 48 (>89); GLUCOSE 102 mg/dL (70-100); HDL CHOLESTEROL 47 mg/dL; LDL CHOLESTEROL,CALCULATED 114 mg/dL; LDL/HDL RATIO 2.4 (<4.4); POTASSIUM 4.2 mmol/L (3.5-5.0); SODIUM 140 mmol/L (135-145); TOTAL PROTEIN 6.9 g/dL (6.7-8.2); TRIGLYCERIDES 92 mg/dL; VLDL CHOLESTEROL 18 mg/dL
[2022-12-09 21:22] LABS: ESTIMATED AVERAGE GLUCOSE 111 mg/dL (70-100); HEMOGLOBIN A1c% 5.5 % (4.27-6.07)
== END 2022-12-09 12:48 | disposition home or self-care (01) ==
LOC: LAB 12:47
PROVIDERS: ATTEND Physician Assistant Medical
DX: E78.5 Hyperlipidemia, unspecified (principal); R73.9 Hyperglycemia, unspecified
CPT/HCPCS: 36415; 80053; 80061; 83036; 83721

== ENCOUNTER 2023-05-12 10:02 | Outpatient (CLI) | payer MEDICARE, OTHER ==
[2023-05-12 10:42] LABS: ALBUMIN 3.8 g/dL (3.2-5.5); ALBUMIN/GLOBULIN RATIO 1.2 (1.0-2.2); ALKALINE PHOSPHATASE 71 IU/L (42-121); ALT ALANINE AMINOTRANSFERASE 21 IU/L (10-60); AST ASPARTATE AMINOTRANSFERASE 20 IU/L (10-42); BILIRUBIN,TOTAL 1.2 mg/dL (0.2-1.0); BUN - BLOOD UREA NITROGEN 35 mg/dL (6-20); CALCIUM 8.7 mg/dL (8.5-10.3); CARBON DIOXIDE - CO2 26 mmol/L (21-32); CHLORIDE 103 mmol/L (101-111); CHOL/HDL RATIO 4.6 (<4.4); CHOLESTEROL 231 mg/dL; CREATININE 1.4 mg/dL (0.4-1.0); GFR - MDRD 37 (>89); GLUCOSE 117 mg/dL (70-100); HDL CHOLESTEROL 50 mg/dL; LDL CHOLESTEROL,CALCULATED 153 mg/dL; LDL/HDL RATIO 3.1 (<4.4); POTASSIUM 4.3 mmol/L (3.5-5.0); SODIUM 138 mmol/L (135-145); TOTAL PROTEIN 7.1 g/dL (6.7-8.2); TRIGLYCERIDES 140 mg/dL; VLDL CHOLESTEROL 28 mg/dL
== END 2023-05-12 10:03 | disposition home or self-care (01) ==
LOC: LAB 10:02
PROVIDERS: ATTEND Physician Assistant Medical
DX: E78.5 Hyperlipidemia, unspecified (principal)
CPT/HCPCS: 36415; 80053; 80061; 83721

== ENCOUNTER 2023-05-21 10:52 | Outpatient (CLI) | payer MEDICARE, OTHER ==
--- NOTE | 2023-05-22 09:48 | Mammography Report ---
BILATERAL DIGITAL SCREENING MAMMOGRAM 3D/2D: 05/21/2023 CLINICAL: Routine screening. Personal history of right breast cancer. Comparison is made to exams dated: 05/20/2022 mammogram, 02/14/2021 mammogram, 12/20/2020 mammogram, an d 09/14/2019 mammogram - [facility]. Both breasts are almost entirely fatty (category a/<25% glandular tissue). There are benign calcifications in both breasts. There also are benign post operative findings in th e right breast. No significant masses, calcifications, or other findings are seen in either breast. There has been no significant interval change. IMPRESSION: BENIGN There is no mammographic evidence of malignancy. A 1 year screening mammogram is recommended. This exam was interpreted at Station ID: [id number]. NOTE: For mammograms, a report in lay terms will be sent to the patient. Approximately 15% of breast malignancies will not be visualized mammographically. In the management of a palpable breast mass, a negative mammogram must not discourage biopsy of a clinically suspicious lesion. Electronically Signed By: Bay humphrey/ugo:05/21/2023 18:18:32 letter sent: No_Letter ACR BI-RADS Category 2: Benign Finding(s) 3342F PARENCHYMAL PATTERN: (F) - The breast(s) demonstrate(s) diffuse fatty replacement. BI-RADS CATEGORY: (2) - 2 Mammogram [id number] 1 year screening LATERALITY: (B)
== END 2023-05-21 10:53 | disposition home or self-care (01) ==
LOC: DI 10:52
DX: Z12.31 Encounter for screening mammogram for malignant neoplasm of breast (principal); Z85.3 Personal history of malignant neoplasm of breast

== ENCOUNTER 2023-06-25 12:47 | Outpatient (CLI) | payer MEDICARE, OTHER ==
--- NOTE | 2023-06-25 21:34 | DEXA Report ---
PROCEDURE: Dexa Spine and/or Hip INDICATIONS: POST MENOPAUSAL TECHNIQUE: Dual energy x-ray absorptiometry (DXA) was performed on a [employer] TV System. Regions measur ed are the AP Spine, femoral neck, and if needed forearm. COMPARISON: None FINDINGS: Lumbar Spine: Bone Mineral Density 1.794 g/cm/cm,T score 5.1. Normal Left Femoral Neck: Bone Mineral Density 1.418 g/cm/cm, T score 2.7. Normal Left Hip: Bone Mineral Density 1.159 g/cm/cm,T score 1.2. Normal (T score greater or equal to -1.0: NORMAL) (T score from -1.1 to -2.4: OSTEOPENIA) (T score less than or equal to -2.5 to: OSTEOPOROSIS) Impression: By WHO criteria, this patient has normal bone mineral density Patients with diagnosis of osteoporosis or osteopenia should have regular bone mineral density assess ment. For those eligible for Medicare, routine testing is allowed once every 2 years. Testing frequ ency can be increased for patients who have rapidly progressing disease or for those who are receivin g medical therapy to restore bone mass. Reviewed by: Brett Menendez MD on 06/25/2023 8:32 PM MARIAH Approved by: Brett Menendez MD on 06/25/2023 8:32 PM AKGLORIA Station ID: [id number]
== END 2023-06-25 12:48 | disposition home or self-care (01) ==
LOC: DI 12:47
PROVIDERS: ATTEND Physician Assistant Medical
DX: Z78.0 Asymptomatic menopausal state (principal)

== ENCOUNTER 2023-07-08 12:26 | Outpatient (CLI) | payer MEDICARE, OTHER ==
[2023-07-08 13:46] LABS: CALCIUM 8.9 mg/dL (8.5-10.3); CREATININE 1.1 mg/dL (0.6-1.3); POTASSIUM 4.2 mmol/L (3.5-4.5)
== END 2023-07-08 12:27 | disposition home or self-care (01) ==
LOC: DI 12:26
PROVIDERS: ATTEND Internal Medicine Cardiovascular Disease
DX: I77.810 Thoracic aortic ectasia (principal); N18.9 Chronic kidney disease, unspecified; I48.91 Unspecified atrial fibrillation
CPT/HCPCS: 36415; 80048; 93306

== ENCOUNTER 2023-11-12 16:53 | Emergency (ER) | payer MEDICARE, OTHER ==
[2023-11-12 18:01] LABS: BASOPHILS % (AUTO) 0.5 %; EOSINOPHILS # (AUTO) 0.1 10^3/uL (0.0-0.7); EOSINOPHILS % (AUTO) 0.9 %; HCT - HEMATOCRIT 44.4 % (37.0-47.0); HGB - HEMOGLOBIN 13.5 g/dL (12.0-16.0); LYMPHOCYTES # (AUTO) 0.7 10^3/uL (1.5-3.5); LYMPHOCYTES % (AUTO) 8.8 %; MEAN CORPUSCULAR HEMOGLOBIN 29.3 pg (27.0-31.0); MEAN CORPUSCULAR HGB CONC 30.4 g/dL (32.0-36.0); MEAN CORPUSCULAR VOLUME 96.5 fL (81.0-99.0); MEAN PLATELET VOLUME 9.4 fL (7.9-10.8); MONOCYTES # (AUTO) 0.7 10^3/uL (0.0-1.0); MONOCYTES % (AUTO) 8.8 %; NEUTROPHILS # (AUTO) 6.3 10^3/uL (1.5-6.6); NEUTROPHILS % (AUTO) 80.5 %; PLT - PLATELET COUNT 248 10^3/uL (130-450); RED CELL DISTRIBUTION WIDTH 13.9 % (12.0-15.0); WHITE BLOOD COUNT 7.8 x10^3/uL (4.8-10.8)
[2023-11-12 18:24] LABS: ALBUMIN 3.9 g/dL (3.2-5.5); ALBUMIN/GLOBULIN RATIO 1.3 (1.0-2.2); BILIRUBIN,TOTAL 0.6 mg/dL (0.2-1.0); CALCIUM 9.5 mg/dL (8.5-10.3); CREATININE 1.5 mg/dL (0.6-1.3); POTASSIUM 4.8 mmol/L (3.5-4.5)
[2023-11-12] MEDS ORDERED: ceFAZolin 1 GM VIAL IVP STA ×2 (19:06→20:17)
[2023-11-12] MEDS ORDERED: FUROSEMIDE 100 MG/10 ML VIAL IVP STA ×2 (19:06→20:18)
--- NOTE | 2023-11-12 19:07 | ED Physician Documentation ---
PD HPI LOWER EXT INJURY - Stated complaint Stated Complaint: BILAT LEG SWELLING - Chief complaint Chief Complaint: Wound - History obtained from History obtained from: Patient - Additional information Additional information: She has a history of chronic pedal edema and is on Lasix for same. Since [place] her leg swelling has gotten worse with weeping wounds. She denies chest pain or trouble breathing. She has been compliant with her Lasix. She has been wound care for similar issues before. 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 HEENT: Tonsil/Adenoidectomy - Present Medications Home Medications: Ambulatory Orders Medication Instructions Recorded Confirmed Apixaban [Eliquis] 5 mg PO BID 10/19/19 11/12/23 Fluticasone Propionate [24 Hour 1 - 2 spray ROMAINE DAILY PRN 10/19/19 11/12/23 Allergy] Furosemide [Lasix] 20 - 40 mg PO DAILY 10/19/19 11/12/23 Metoprolol Succinate [Toprol Xl] 150 mg PO DAILY 10/19/19 11/12/23 Tramadol HCl 50 mg PO TID PRN 10/19/19 11/12/23 lisinopriL [Lisinopril] 5 mg PO DAILY 10/19/19 11/12/23 Lactobacillus Combination No.4 1 each PO DAILY 11/12/23 11/12/23 [Probiotic] Nystatin Cream [Mycostatin Cream] 1 applic TOP BID 11/12/23 11/12/23 - Allergies Allergies/Adverse Reactions: Allergies Allergy/AdvReac Type Severity Reaction Status Date / Time adhesive tape Allergy Unknown Verified 08/22/20 10:57 aloe vera Allergy Unknown Verified 08/22/20 10:57 amoxicillin Allergy Unknown Verified 08/22/20 10:57 penicillin V Allergy Unknown Verified 08/22/20 10:57 spironolactone AdvReac Rash Verified 08/22/20 10:57 Mild Hay fever Allergy Unknown Uncoded 08/22/20 10:57 - Social History Does the pt smoke?: No Smoking Status: Never smoker PD ED PE NORMAL - Vitals Vital signs reviewed: Yes - General General: Alert and oriented X 3, No acute distress - Cardiac Cardiac: No murmur, Other (irreg/irreg) - Respiratory Respiratory: No respiratory distress, Clear bilaterally - Abdomen Abdomen: Non tender - Back Back: No CVA TTP, No spinal TTP - Derm Derm: Normal color, Warm and dry - Extremities Extremities: Other (She has significant 4++ lower extremity edema with multiple weeping wounds. Her mobility is very poor but she says that is chronic.) - Neuro Neuro: Alert and oriented X 3, Normal speech Results - Vitals Vitals: Vital Signs - 24 hr 11/12/23 11/12/23 17:00 19:08 Temperature 36 C L Heart Rate 62 Respiratory 16 20 Rate Blood Pressure 129/106 H O2 Saturation 100 Oxygen O2 Source Room air - EKG (time done) 1915 EKG releavant findings:: EKG personally interpreted by author of this note. Relevant findings are: Rate: Rate (enter#) (91) Rhythm: Atrial fibrillation [place]: Normal Intervals: Prolonged QT QRS: Normal Ischemia: Non specific changes - Labs Labs: Laboratory Tests 11/12/23 11/12/23 11/12/23 17:50 17:50 17:50 WBC 7.8 RBC 4.60 Hgb 13.5 Hct 44.4 MCV 96.5 MCH 29.3 MCHC 30.4 L RDW 13.9 Plt Count 248 MPV 9.4 Neut # (Auto) 6.3 Lymph # (Auto) 0.7 L [place] # (Auto) 0.7 Eos # (Auto) 0.1 Baso # (Auto) 0.0 Absolute Nucleated RBC 0.00 Nucleated RBC % 0.0 Sodium 137 Potassium 4.8 H Chloride 103 Carbon Dioxide 23 Anion Gap 11.0 BUN 38 H Creatinine 1.5 H Estimated GFR (MDRD) 34 L Glucose 95 Calcium 9.5 Total Bilirubin 0.6 AST 16 ALT 11 Alkaline Phosphatase 88 B-Natriuretic Peptide 164 H Total Protein 7.0 Albumin 3.9 Globulin 3.1 Albumin/Globulin Ratio 1.3 PD Medical Decision Making - ED course ED course: 78-year-old woman with anasarca. No evidence of acute CHF. Her labs are notable for normal CBC, CMP showing mild prerenal azotemia and only modest elevation of BNP really not consistent with severe CHF. Note made that the hospital is currently full although I did recommend admission and she understands she will be boarding in the emergency department. She is administered IV Lasix both initially and scheduled as well as IV Ancef, initially and scheduled, scheduled Lovenox. Care to overnight emergency physician at shift change pending reevaluation and hopeful admission when a bed is available. Departure - Departure Disposition: 66 [facility] DC/Xfer Clinical Impression: Anasarca Leg wound, left Qualifiers: Encounter type: initial encounter Qualified Code(s): S81.802A - Unspecified open wound, left lower leg, initial encounter Leg wound, right Qualifiers: Encounter type: initial encounter Qualified Code(s): S81.801A - Unspecified open wound, right lower leg, initial encounter Condition: Stable Record reviewed to determine appropriate education?: Yes Forms: PCP List
[2023-11-12] MEDS ORDERED: ACETAMINOPHEN 500 MG TABLET PO PRN (19:08)
[2023-11-12] MEDS ORDERED: ONDANSETRON 4 MG/2 ML VIAL IVP PRN (19:08)
[2023-11-12] MEDS: NYSTATIN POWDER 15 GM TOP SCH (20:24)
[2023-11-12] MEDS: FUROSEMIDE 20 MG/2 ML VIAL IVP SCH (21:38)
--- NOTE | 2023-11-12 22:00 | ED Physician Documentation ---
ED Addendum - Addendum Addendum: 11/12/23 21:59 Patient endorsed to me by Dr. Major at 10 PM shift change boarding in the ED for admission for bilateral lower extremity cellulitis. Plan to endorse to incoming daytime EDMD at 7 AM shift change.
[2023-11-13] MEDS: ceFAZolin 1 GM VIAL IVP SCH ×4 (02:51→19:53)
[2023-11-13 07:06] LABS: CALCIUM 9.2 mg/dL (8.5-10.3); CREATININE 1.4 mg/dL (0.6-1.3); POTASSIUM 4.3 mmol/L (3.5-4.5)
[2023-11-13] MEDS: PANTOPRAZOLE 40 MG TABLET PO SCH (07:17)
--- NOTE | 2023-11-13 08:50 | ED Physician Documentation ---
ED Addendum - Addendum Addendum: 11/13/23 08:52 The patient was resting comfortably. She had had some breakfast without any problems. She is pending admission for edema and skin infection. There were no beds available last evening and overnight. Will await discharges. Meanwhile orders are written for ongoing care for her here in the ER.
[2023-11-13] MEDS: ENOXAPARIN 40 MG/0.4 ML SYRINGE SUBQ SCH (09:03)
[2023-11-13] MEDS: FUROSEMIDE 40 MG/4 ML VIAL IVP SCH (09:03)
[2023-11-13] MEDS: NYSTATIN POWDER 15 GM TOP SCH ×4 (09:03→20:11)
--- NOTE | 2023-11-13 14:12 | CONSULTATION NOTE ---
Referring Provider Name of Referring Provider:: Dr Alberto Consult Date: 11/13/23 Chief Complaint - Chief Complaint Chief Complaint: Legs swollen with wounds History of Present Illness - History Obtained From History obtained from: ED provider and chart review - History of Present Illness HPI Comment/Other: Per DR Alberto, this is a 78-year-old female with a history of morbid obesity (BMI 61), lymphedema with chronic leg swelling, and history of prior leg wounds previously followed by Kennedi Ch at our [facility], last visit to Wound Clinic was in January 2023. The patient presents to the ER complaining of worsening leg edema and leg wounds. She is noted to have anasarca but not pulmonary edema. She has not been on antibiotics orally to treat the wound of the skin of her leg. There has been no fever. Workup in the ER shows that she has a normal white blood count, a lactic acid was not done. The first ED provider started the patient on IV diuretics and IV antibiotics. The next ED provider spoke to me about placing this patient in the hospital for further care. 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: Other HEENT: reports: Tonsil/Adenoidectomy - Family & Social History Living arrangement: At home Living Situation: Alone Social History Notes: She has caregivers at home Meds/Allgy - Home Medications Home Medications: Ambulatory Orders Medication Instructions Recorded Confirmed Apixaban [Eliquis] 5 mg PO BID 10/19/19 11/12/23 Fluticasone Propionate [24 Hour 1 - 2 spray ROMAINE DAILY PRN 10/19/19 11/12/23 Allergy] Furosemide [Lasix] 20 - 40 mg PO DAILY 10/19/19 11/12/23 Metoprolol Succinate [Toprol Xl] 150 mg PO DAILY 10/19/19 11/12/23 Tramadol HCl 50 mg PO TID PRN 10/19/19 11/12/23 lisinopriL [Lisinopril] 5 mg PO DAILY 10/19/19 11/12/23 Lactobacillus Combination No.4 1 each PO DAILY 11/12/23 11/12/23 [Probiotic] Nystatin Cream [Mycostatin Cream] 1 applic TOP BID 11/12/23 11/12/23 Furosemide [Lasix] 40 mg PO QPM #30 tablet 11/13/23 Furosemide [Lasix] 80 mg PO DAILY #30 tablet 11/13/23 cephALEXin [Keflex] 500 mg PO Q6H #28 cap 11/13/23 Acetaminophen [Tylenol] 1,000 mg PO Q6H PRN #60 tab 11/17/23 Apixaban [Eliquis] 5 mg PO BID #60 tablet 11/17/23 Fluticasone Propionate 2 spr NS DAILY 30 Days #1 ml 11/17/23 L.acid/L.casei/B.bif/B.ronaldo/Fos 1 each PO DAILY 7 Days #30 cap 11/17/23 [Probiotic Blend Capsule] Metoprolol Succinate [Toprol Xl] 150 mg PO DAILY #30 tab 11/17/23 Nystatin [Nystop] 1 applic TOP QID #15 gm 11/17/23 lisinopriL [Zestril] 5 mg PO DAILY #30 tab 11/17/23 traMADol [Ultram] 50 mg PO TID PRN #90 tablet 11/17/23 - Allergies Allergies/Adverse Reactions: Allergies Allergy/AdvReac Type Severity Reaction Status Date / Time adhesive tape Allergy Unknown Verified 11/13/23 10:29 aloe vera Allergy Unknown Verified 11/13/23 10:29 amoxicillin Allergy Unknown Verified 11/13/23 10:29 penicillin V Allergy Unknown Verified 11/13/23 10:29 spironolactone AdvReac Rash Verified 11/13/23 10:29 Mild Hay fever Allergy Unknown Uncoded 11/13/23 10:29 Exam - Vital Signs Reviewed Vital Signs: Yes Vital Signs: Vital Signs x48h Pulse Resp BP Pulse Ox 11/13/23 12:44 85 20 135/91 H 96 11/13/23 10:32 97 20 158/106 H 92 11/13/23 09:57 99 20 131/56 H 96 11/13/23 07:00 69 20 116/77 98 - Physical Exam General Appearance: positive: Other (Morbidly obese (BMI 61)) Extremities: positive: Other (As per imaging in this chart she has chronic venous stasis changes, verrucous thickening of the skin with evidence of old scars from wounds and open wound of the lower leg with pink color.) Conclusion/Plan - Problem List (1) Open leg wound Conclusion/Plan: The patient currently does not have indication for admission to the hospital: She has a normal white blood count, no fever, no hemodynamic compromise. This was reviewed by Case Management (Florinda Zazueta RN) Recommendations: Outpatient treatment using oral antibiotics plus a probiotic General surgery consult now for recommendations regarding any debridement and best management topically of her leg wounds Referral by her PCP back to [facility] for wound management Cont Lasix for her chronic edema - Lab Results Fish Bones: 11/12/23 17:50 11/13/23 06:39
--- NOTE | 2023-11-13 14:38 | ED Physician Documentation ---
ED Addendum - Addendum Addendum: 11/13/23 14:38 Patient seen and examined at the bedside. She is minus about 7 L since she got here and her legs do look less puffy. Preliminary wound culture looks polymicrobial. Hospitalist consulted, Dr. Vincent deems that she does not have criteria for admission. Patient not comfortable going home yet so we will continue to board another night. In the interim I will ask social work to see her regarding question of home health care. We will see if wound care can see her while she is here but I will also email MARY Torres as she will need a wound care consult.
[2023-11-13] MEDS ORDERED: fentaNYL 100 MCG/2 ML VIAL IVP STA (16:24)
[2023-11-13] MEDS: FUROSEMIDE 20 MG/2 ML VIAL IVP SCH (20:11)
[2023-11-13] MEDS: oxyCODONE 5 MG TABLET PO PRN (21:28)
[2023-11-14] MEDS ORDERED: ceFAZolin 1 GM in SODIUM CHLORIDE 0.9% MINIBAG 100 ML IV STA ×3 (02:15→08:39)
[2023-11-14] MEDS: ceFAZolin 1 GM VIAL IVP SCH (02:22)
[2023-11-14] MEDS ORDERED: ceFAZolin 1 GM VIAL ONE (02:25)
[2023-11-14] MEDS: oxyCODONE 5 MG TABLET PO PRN (03:42)
[2023-11-14] MEDS: PANTOPRAZOLE 40 MG TABLET PO SCH (06:46)
[2023-11-14] MEDS: ENOXAPARIN 40 MG/0.4 ML SYRINGE SUBQ SCH (09:25)
[2023-11-14] MEDS: FUROSEMIDE 40 MG/4 ML VIAL IVP SCH (09:25)
[2023-11-14] MEDS: METOPROLOL SUCCINATE 50 MG TABLET PO SCH (09:26)
[2023-11-14] MEDS: lisinopriL 5 MG TABLET PO SCH (09:26)
[2023-11-14] MEDS: NYSTATIN POWDER 15 GM TOP SCH ×4 (09:27→20:57)
--- NOTE | 2023-11-14 10:41 | ED Physician Documentation ---
ED Addendum - Addendum Addendum: 11/14/23 10:40 78-year-old female with dependent edema, cellulitis and new open wounds has improved over her period of time in the emergency department while awaiting an inpatient bed. Is she improved enough to be discharged to home? It seems like she was not doing well at home that led to this predicament in the first place. 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 She remains in the ED awaiting placement. 11/14/23 17:07 11/14/23 17:59
[2023-11-14] MEDS ORDERED: cephALEXin 250 MG CAPSULE PO SCH (20:00)
--- NOTE | 2023-11-14 20:07 | ED Physician Documentation ---
ED Addendum - Addendum Addendum: 11/14/23 20:07 Cultures reviewed, I changed her antibiotic to Cipro given the Enterobacter resistance to cefazolin. The sensitivities for the staph are still pending. She was wanting to go home but really not mobile enough to do so. As such she is agreeable to SNF placement and social work is working on that.
[2023-11-14] MEDS: CIPROFLOXACIN 250 MG TABLET PO SCH (20:54)
[2023-11-14] MEDS: FUROSEMIDE 20 MG/2 ML VIAL IVP SCH (20:55)
[2023-11-15] MEDS ORDERED: SODIUM CHLORIDE 0.9% 500 ML IV ONE (04:43)
[2023-11-15] MEDS: PANTOPRAZOLE 40 MG TABLET PO SCH (06:28)
[2023-11-15] MEDS: ENOXAPARIN 40 MG/0.4 ML SYRINGE SUBQ SCH (09:19)
[2023-11-15] MEDS: CIPROFLOXACIN 250 MG TABLET PO SCH ×2 (09:19→21:03)
[2023-11-15] MEDS: FUROSEMIDE 40 MG/4 ML VIAL IVP SCH (09:19)
[2023-11-15] MEDS: METOPROLOL SUCCINATE 50 MG TABLET PO SCH (09:20)
[2023-11-15] MEDS: lisinopriL 5 MG TABLET PO SCH (09:20)
[2023-11-15] MEDS: NYSTATIN POWDER 15 GM TOP SCH ×4 (09:20→21:03)
--- NOTE | 2023-11-15 15:58 | ED Physician Documentation ---
ED Addendum - Addendum Addendum: 11/15/23 15:57 The patient was on the phone talking to a friend or family so I did not interrupt very long. The patient states she is doing okay and did not have any particular complaints. Charge nurse notes the patient had been doing okay today. ER techs will plan to do some dressing changes later to this afternoon. Morning dressing changes were without any problems according to nursing. Continue with current treatment plan. Review by social work and evaluate for potential rehab tomorrow.
[2023-11-15] MEDS: FUROSEMIDE 20 MG/2 ML VIAL IVP SCH (21:03)
[2023-11-16] MEDS: PANTOPRAZOLE 40 MG TABLET PO SCH (06:58)
[2023-11-16] MEDS: CIPROFLOXACIN 250 MG TABLET PO SCH ×2 (09:02→20:08)
[2023-11-16] MEDS: lisinopriL 5 MG TABLET PO SCH (09:02)
[2023-11-16] MEDS: FUROSEMIDE 40 MG/4 ML VIAL IVP SCH (09:02)
[2023-11-16] MEDS: METOPROLOL SUCCINATE 50 MG TABLET PO SCH (09:02)
[2023-11-16] MEDS: NYSTATIN POWDER 15 GM TOP SCH ×4 (09:02→20:08)
[2023-11-16] MEDS: ENOXAPARIN 40 MG/0.4 ML SYRINGE SUBQ SCH (09:02)
--- NOTE | 2023-11-16 18:18 | ED Physician Documentation ---
ED Addendum - Addendum Addendum: 11/16/23 18:17 The patient did not have any problems by report from overnight staff and through the day. She had routine care and her usual medications. Social work has plans for her to be able to go to a halfway tomorrow. Her primary care is filling out the halfway forms according to social work. They did ask that a send her prescriptions to the pharmacy for her. Her routine medicines were sent to that way to [facility]. We will review in the morning and hopefully she will transfer to halfway.
[2023-11-16] MEDS: FUROSEMIDE 20 MG/2 ML VIAL IVP SCH (20:09)
[2023-11-16] MEDS ORDERED: SODIUM CHLORIDE 0.9% 500 ML IV STA (22:15)
--- NOTE | 2023-11-16 22:23 | ED Physician Documentation ---
ED Addendum - Addendum Addendum: 11/16/23 22:22 Patient asymptomatic but hypotensive at the end of my shift, given 500 mL of IV fluids. Will be reassessed by the oncoming ED physician. Patient signed out to the oncoming emergency department physician.
[2023-11-17] MEDS: PANTOPRAZOLE 40 MG TABLET PO SCH (06:14)
--- NOTE | 2023-11-17 09:46 | ED Physician Documentation ---
ED Addendum - Addendum Addendum: 11/17/23 09:44 The patient did not have any particular complaints this morning. She is slated for transfer to a fdc with a pickup at 1030 this morning. I did transmit her medications to the [facility] pharmacy with the exception of tramadol that was requested by the facility to be printed. I would presume they have problems getting controlled substances through the mail. Otherwise the patient's provider had filled out other information for the patient yesterday according to social work. Kristen from social work had arranged transportation. The patient is able to be discharged in stable condition. Disposition: Transfer to fdc facility. Diagnoses: Bilateral foot and ankle sores 2. General weakness 3. Self-care limitations
[2023-11-17] MEDS: ENOXAPARIN 40 MG/0.4 ML SYRINGE SUBQ SCH (10:21)
[2023-11-17] MEDS: CIPROFLOXACIN 250 MG TABLET PO SCH (10:22)
[2023-11-17 10:27] VITALS: BP 89/47
[2023-11-17] MEDS: FUROSEMIDE 40 MG/4 ML VIAL IVP SCH (10:35)
[2023-11-17] MEDS: METOPROLOL SUCCINATE 50 MG TABLET PO SCH (10:36)
[2023-11-17] MEDS: lisinopriL 5 MG TABLET PO SCH (10:36)
[2023-11-17] MEDS: NYSTATIN POWDER 15 GM TOP SCH (10:39)
[2023-11-17 11:54] VITALS: O2SAT 95
--- NOTE | 2023-11-19 07:49 | ED Physician Documentation ---
ED Addendum - Addendum Addendum: 11/19/23 07:45 Chart accessed for culture review. Wound culture from 11/17/23 growing three different organisms including pseudomonas stutzeri (unlikely to respond to cephalosporin which is what she was prescribed at d/c from ED). All three bacteria on culture are sensitive to ciprofloxacin and thus I am recommending stopping the cephalexin and starting CIPRO 500mg PO BID x 1 week. Her creatinine clearance is 78 by Cockcroft-Gault and no renal adjustment needed for this; with adjustment for obesity (using MD calc), creatinine clearance is 46 which still allows for 500mg BID dosing/scheduling
== END 2023-11-17 11:53 | disposition home or self-care (01) ==
LOC: ED 16:53
DX: R60.1 Generalized edema (principal); S81.802A Unspecified open wound, left lower leg, initial encounter; S81.801A Unspecified open wound, right lower leg, initial encounter; X58.XXXA Exposure to other specified factors, initial encounter; L03.116 Cellulitis of left lower limb; L03.115 Cellulitis of right lower limb; B95.61 Methicillin susceptible Staphylococcus aureus infection as the cause of diseases classified elsewhere; B96.5 Pseudomonas (aeruginosa) (mallei) (pseudomallei) as the cause of diseases classified elsewhere; B96.89 Other specified bacterial agents as the cause of diseases classified elsewhere; Z16.19 Resistance to other specified beta lactam antibiotics; R53.1 Weakness; I50.9 Heart failure, unspecified; I48.91 Unspecified atrial fibrillation; E66.01 Morbid (severe) obesity due to excess calories; Z68.44 Body mass index [BMI] 60.0-69.9, adult; Z79.01 Long term (current) use of anticoagulants; Z79.899 Other long term (current) drug therapy
CPT/HCPCS: 36415; 80048; 80053; 83880; 85025; 87070; 87077; 87181; 87205; 87635; 93005; 96361; 96365; 96366; 96372; 96375; 96376; 97162; 97166; 99284; A9270; J1650; J1940

== ENCOUNTER → 2024-02-02 | Outpatient (CLI) | payer MEDICARE, OTHER | LOC: PC 08:00 | PROVIDERS: ATTEND Nurse Practitioner Gerontology | DX: Z51.5 Encounter for palliative care (principal); L03.115 Cellulitis of right lower limb; I89.0 Lymphedema, not elsewhere classified; I50.9 Heart failure, unspecified; I87.2 Venous insufficiency (chronic) (peripheral); L97.229 Non-pressure chronic ulcer of left calf with unspecified severity; L98.8 Other specified disorders of the skin and subcutaneous tissue; M16.11 Unilateral primary osteoarthritis, right hip; G47.00 Insomnia, unspecified; I48.91 Unspecified atrial fibrillation; Z79.899 Other long term (current) drug therapy; Z79.01 Long term (current) use of anticoagulants; R26.89 Other abnormalities of gait and mobility; Z74.09 Other reduced mobility; Z71.89 Other specified counseling; Z91.81 History of falling | CPT/HCPCS: 99350 ==

== ENCOUNTER 2024-02-15 13:35 | Outpatient (CLI) | payer MEDICARE, OTHER | END 2024-02-15 23:59 | disposition home or self-care (01) | LOC: PC 13:35 | PROVIDERS: ATTEND Nurse Practitioner Gerontology | DX: Z51.5 Encounter for palliative care (principal); E66.9 Obesity, unspecified; Z68.43 Body mass index [BMI] 50.0-59.9, adult; M16.11 Unilateral primary osteoarthritis, right hip; R60.0 Localized edema; Z91.81 History of falling; Z71.89 Other specified counseling | CPT/HCPCS: 99350 ==

== ENCOUNTER 2024-02-28 08:00 | Outpatient (CLI) | payer MEDICARE, OTHER | END 2024-02-28 23:59 | disposition home or self-care (01) | LOC: PC 08:00 | PROVIDERS: ATTEND Nurse Practitioner Gerontology | DX: Z51.5 Encounter for palliative care (principal); I50.9 Heart failure, unspecified | CPT/HCPCS: 99426; 99427 ==

== ENCOUNTER 2024-03-09 11:29 | Outpatient (CLI) | payer MEDICARE, OTHER ==
--- NOTE | 2024-03-09 19:06 | Ultrasound Report ---
PROCEDURE: Ankle Brachial Index INDICATIONS: EDEMA TECHNIQUE: Ankle-brachial indices were obtained bilaterally and recorded. COMPARISONS: ELIDA on December 31, 2016. FINDINGS: Right brachial: 125 mmHg Right ankle: 127 mmHg Right ankle brachial index (ELIDA): 1 Left brachial: ): 126mmHg Left ankle: ): 132mmHg Left ankle brachial index (ELIDA): 1 Right lower extremity demonstrates monophasic GANG VIBRATOR OPERATOR and triphasic DPA. The monophasic GANG VIBRATOR OPERATOR may be second daniel to suboptimal sampling due to edema. Left lower extremity demonstrates biphasic GANG VIBRATOR OPERATOR and biphasic (above baseline) DPA. Healing potential: Ankle pressures >55 mm Hg in non-diabetics and >80 mm Hg in diabetics are likely to achieve primary h ealing of ischemic foot ulcers. Toe pressures >30 mm Hg are likely to achieve primary healing of ischemic foot ulcers, toe or transme tatarsal amputations. IMPRESSION: Bilateral resting ABIs are normal measuring 1 on the right and 1 on the left. Reviewed by: Juan Pablo Olvera MD on 03/09/2024 7:04 PM PDT Approved by: Juan Pablo Olvera MD on 03/09/2024 7:04 PM PDT Station ID: [id number]
== END 2024-03-09 11:30 | disposition home or self-care (01) ==
LOC: DI 11:29
PROVIDERS: ATTEND Nurse Practitioner Gerontology
DX: R60.0 Localized edema (principal)
CPT/HCPCS: 93922

== ENCOUNTER 2024-03-15 10:02 | Outpatient (CLI) | payer MEDICARE, OTHER | END 2024-03-15 23:59 | disposition home or self-care (01) | LOC: PC 10:02 | PROVIDERS: ATTEND Nurse Practitioner Gerontology | DX: Z51.5 Encounter for palliative care (principal); R60.0 Localized edema; R26.89 Other abnormalities of gait and mobility; M16.11 Unilateral primary osteoarthritis, right hip; J30.9 Allergic rhinitis, unspecified; L98.9 Disorder of the skin and subcutaneous tissue, unspecified | CPT/HCPCS: 99350 ==

== ENCOUNTER 2024-03-21 11:09 | Outpatient (CLI) | payer MEDICARE, OTHER ==
[2024-03-21 11:26] LABS: BASOPHILS % (AUTO) 0.6 %; EOSINOPHILS # (AUTO) 0.1 10^3/uL (0.0-0.7); EOSINOPHILS % (AUTO) 2.2 %; HCT - HEMATOCRIT 45.1 % (37.0-47.0); HGB - HEMOGLOBIN 13.7 g/dL (12.0-16.0); LYMPHOCYTES # (AUTO) 0.8 10^3/uL (1.5-3.5); LYMPHOCYTES % (AUTO) 15.5 %; MEAN CORPUSCULAR HEMOGLOBIN 29.1 pg (27.0-31.0); MEAN CORPUSCULAR HGB CONC 30.4 g/dL (32.0-36.0); MEAN PLATELET VOLUME 9.7 fL (7.9-10.8); MONOCYTES # (AUTO) 0.5 10^3/uL (0.0-1.0); MONOCYTES % (AUTO) 10.5 %; NEUTROPHILS # (AUTO) 3.5 10^3/uL (1.5-6.6); NEUTROPHILS % (AUTO) 70.8 %; PLT - PLATELET COUNT 194 10^3/uL (130-450); RED CELL DISTRIBUTION WIDTH 13.6 % (12.0-15.0)
[2024-03-21 11:40] LABS: ALBUMIN 3.9 g/dL (3.2-5.5); ALBUMIN/GLOBULIN RATIO 1.4 (1.0-2.2); ALKALINE PHOSPHATASE 78 IU/L (42-121); ALT ALANINE AMINOTRANSFERASE 12 IU/L (10-60); AST ASPARTATE AMINOTRANSFERASE 14 IU/L (10-42); BILIRUBIN,TOTAL 0.7 mg/dL (0.2-1.0); BUN - BLOOD UREA NITROGEN 26 mg/dL (6-20); CALCIUM 9.5 mg/dL (8.5-10.3); CARBON DIOXIDE - CO2 28 mmol/L (21-32); CHLORIDE 105 mmol/L (101-111); CHOL/HDL RATIO 3.6 (<4.4); CHOLESTEROL 171 mg/dL; CREATININE 1.2 mg/dL (0.6-1.3); GFR - MDRD 44 (>89); GLUCOSE 103 mg/dL (74-104); HDL CHOLESTEROL 47 mg/dL; LDL CHOLESTEROL,CALCULATED 97 mg/dL; LDL/HDL RATIO 2.1 (<4.4); SODIUM 139 mmol/L (135-145); TOTAL PROTEIN 6.6 g/dL (6.4-8.9); TRIGLYCERIDES 135 mg/dL (48-352); VLDL CHOLESTEROL 27 mg/dL
== END 2024-03-21 11:10 | disposition home or self-care (01) ==
LOC: LAB 11:09
PROVIDERS: ATTEND Physician Assistant Medical
DX: J30.9 Allergic rhinitis, unspecified (principal); E78.5 Hyperlipidemia, unspecified; N18.9 Chronic kidney disease, unspecified; I48.0 Paroxysmal atrial fibrillation
CPT/HCPCS: 36415; 80053; 80061; 83721; 85025

== ENCOUNTER 2024-03-29 08:00 | Outpatient (CLI) | payer MEDICARE, OTHER | END 2024-03-29 23:59 | disposition home or self-care (01) | LOC: PC 08:00 | PROVIDERS: ATTEND Nurse Practitioner Gerontology | DX: Z51.5 Encounter for palliative care (principal); I50.9 Heart failure, unspecified | CPT/HCPCS: 99426 ==

== ENCOUNTER 2024-03-30 10:25 | Outpatient (CLI) | payer MEDICARE, OTHER | END 2024-03-30 23:59 | disposition home or self-care (01) | LOC: PC 10:25 | PROVIDERS: ATTEND Nurse Practitioner Gerontology | DX: Z51.5 Encounter for palliative care (principal); R60.0 Localized edema; R26.89 Other abnormalities of gait and mobility; L98.8 Other specified disorders of the skin and subcutaneous tissue; J30.9 Allergic rhinitis, unspecified; M16.11 Unilateral primary osteoarthritis, right hip; I50.9 Heart failure, unspecified | CPT/HCPCS: 99350 ==

== ENCOUNTER 2024-04-27 08:00 | Outpatient (CLI) | payer MEDICARE, OTHER | END 2024-04-27 23:59 | disposition home or self-care (01) | LOC: PC 08:00 | PROVIDERS: ATTEND Nurse Practitioner Gerontology | DX: Z51.5 Encounter for palliative care (principal); R60.0 Localized edema; R26.89 Other abnormalities of gait and mobility; Z91.81 History of falling; I50.9 Heart failure, unspecified; M16.11 Unilateral primary osteoarthritis, right hip | CPT/HCPCS: 99349 ==

== ENCOUNTER 2024-05-26 13:33 | Outpatient (CLI) | payer MEDICARE, OTHER ==
[2024-05-26 14:00] LABS: CALCIUM 9.3 mg/dL (8.5-10.3); CREATININE 1.2 mg/dL (0.6-1.3); POTASSIUM 4.4 mmol/L (3.5-4.5)
== END 2024-05-26 13:34 | disposition home or self-care (01) ==
LOC: LAB 13:33
PROVIDERS: ATTEND Internal Medicine Cardiovascular Disease
DX: I50.22 Chronic systolic (congestive) heart failure (principal)
CPT/HCPCS: 36415; 80048; 83880

== ENCOUNTER 2024-06-03 08:00 | Outpatient (CLI) | payer MEDICARE, OTHER | END 2024-06-03 23:59 | disposition home or self-care (01) | LOC: PC 08:00 | PROVIDERS: ATTEND Nurse Practitioner Gerontology | DX: Z51.5 Encounter for palliative care (principal); I89.0 Lymphedema, not elsewhere classified; I48.91 Unspecified atrial fibrillation; E66.01 Morbid (severe) obesity due to excess calories; I42.9 Cardiomyopathy, unspecified; N18.31 Chronic kidney disease, stage 3a; I13.0 Hypertensive heart and chronic kidney disease with heart failure and stage 1 through stage 4 chronic kidney disease, or unspecified chronic kidney disease; I50.9 Heart failure, unspecified; I95.9 Hypotension, unspecified; T50.1X5A Adverse effect of loop [high-ceiling] diuretics, initial encounter; I87.2 Venous insufficiency (chronic) (peripheral); M16.11 Unilateral primary osteoarthritis, right hip; Z71.89 Other specified counseling; Z79.899 Other long term (current) drug therapy; Z79.01 Long term (current) use of anticoagulants; Z74.1 Need for assistance with personal care | CPT/HCPCS: 99350 ==

== ENCOUNTER 2024-06-22 12:16 | Outpatient (CLI) | payer MEDICARE, OTHER ==
[2024-06-22 12:48] LABS: CALCIUM 9.4 mg/dL (8.5-10.3); CREATININE 1.2 mg/dL (0.6-1.3); POTASSIUM 4.2 mmol/L (3.5-4.5)
== END 2024-06-22 12:17 | disposition home or self-care (01) ==
LOC: LAB 12:16
PROVIDERS: ATTEND Internal Medicine Cardiovascular Disease
DX: I50.32 Chronic diastolic (congestive) heart failure (principal)
CPT/HCPCS: 36415; 80048; 83880

== ENCOUNTER 2024-06-29 08:00 | Outpatient (CLI) | payer MEDICARE, OTHER | END 2024-06-29 23:59 | disposition home or self-care (01) | LOC: PC 08:00 | PROVIDERS: ATTEND Nurse Practitioner Gerontology | DX: Z51.5 Encounter for palliative care (principal); I50.9 Heart failure, unspecified | CPT/HCPCS: 99426 ==